=== PATIENT | male | born 1980 | race Caucasian/White ===

== ENCOUNTER 2025-07-05 20:03 | Emergency (ER) | payer OTHER ==
[~2025-07-05] VITALS: Ht 167.6 cm; Wt 117.9 kg
[2025-07-05] MEDS ORDERED: GLUCAGON,HUMAN RECOMBINANT 1 MG/VIAL VIAL ONE (20:49)
[2025-07-05] MEDS ORDERED: WATER FOR INJECTION,STERILE 10 ML ONE (20:52)
[2025-07-05 20:55] LABS: PLATELET COUNT (AUTO) 369 K/uL (150-450); RED BLOOD CELL COUNT(AUTO) 5.11 MIL/uL (4.5-6.0); RED CELL DISTRIBUTION WIDTH 13.8 % (11.5-15.0); WHITE BLOOD COUNT (AUTO) 12.9 K/uL (4.3-11.0)
[2025-07-05 21:07] LABS: CALCIUM, SERUM 9.8 mg/dL (8.5-10.1); CREATININE 1.6 mg/dL (0.6-1.3); SODIUM SERUM 136.0 mmol/L (136-145); UREA NITROGEN, BLOOD 15.0 mg/dL (7-18)
[2025-07-05] MEDS: GLUCAGON,HUMAN RECOMBINANT 1 MG/VIAL VIAL IV ONE (21:08)
[2025-07-05 21:09] LABS: INR 1.01 (0.91-1.10)
[2025-07-05] MEDS: IV NS 0.9% 1,000 ML BAG IV ONE (21:09)
[2025-07-05 21:13] LABS: ASPARTATE AMINOTRANSFERASE 56.0 U/L (15-37); TOTAL PROTEIN, SERUM 8.9 g/dL (6.4-8.2)
[2025-07-05 22:57] VITALS: BP 128/78; TEMP 98.5; O2SAT 98
== END 2025-07-05 22:57 | disposition home or self-care (01) ==
LOC: ER 20:06
DX: R11.0 Nausea (principal); R07.89 Other chest pain
CPT/HCPCS: 99285; 71250; 96374; 96361; 93005; 74176; 85025; 80048; 83690; 80076; 36415; 84484; 85730; 86850; J1610; J7030; A4217